=== PATIENT | female | born 1985 | race Caucasian/White ===

== ENCOUNTER 2017-03-18 13:50 | Emergency (ER) | payer BC ==
[2017-03-18] MEDS ORDERED: Sulfamethox/Trimethoprim DS 800/160* TAB PO ONE (15:39)
[2017-03-18] MEDS ORDERED: Cephalexin CAP* 500 MG PO ONE (15:39)
[2017-03-18] MEDS ORDERED: Ibuprofen TAB* 600 MG PO ONE (15:40)
--- NOTE | 2017-03-18 15:45 | UC ---
Complaint Female HPI - HPI Summary HPI Summary: 31 year old female with no significant pmhx here for vaginal pain. Pain started two days ago and today worsening. Reports symptoms worsening today , prompting her to come to the UC. No discharge, dysuria, fever or chills. - History Of Current Complaint Chief Complaint: UCGeneralIllness Stated Complaint: CYST/PERSONAL Time Seen by Provider: 03/18/17 14:45 Hx Obtained From: Patient Hx Last Menstrual Period: spotting x 1 week ?: No Onset/Duration: Gradual Onset Severity Initially: Mild Severity Currently: Moderate Character: Sharp Aggravating Factor(s): Movement Alleviating Factor(s): Other - rest Associated Signs And Symptoms: Positive: Negative - Allergies/Home Medications Allergies/Adverse Reactions: Allergies Allergy/AdvReac Type Severity Reaction Status Date / Time cantelope Allergy Intermediate Heartburn Uncoded 10/12/14 07:53 Home Medications: Home Medications Letrozole 2.5 mg PO 03/18/17 [History] PMH/Surg Hx/FS Hx/Imm Hx Psychological History: Depression - Surgical History Surgical History: None - Social History Alcohol Use: Rare Substance Use Type: None Smoking Status (MU): Never Smoked Tobacco - Immunization History Most Recent Influenza Vaccination: unk Most Recent Tetanus Shot: 07/07/14 Most Recent Pneumonia Vaccination: none Review of Systems Constitutional: Negative Skin: Negative Eyes: Negative ENT: Negative Respiratory: Negative Cardiovascular: Negative Gastrointestinal: Negative Genitourinary: Negative, Vaginal/Penile Pain Motor: Negative Neurovascular: Negative Musculoskeletal: Negative Neurological: Negative Psychological: Negative All Other Systems Reviewed And Are Negative: Yes Physical Exam Triage Information Reviewed: Yes Appearance: Well-Appearing, Well-Nourished Vital Signs: Initial Vital Signs Temp 36.6 C 03/18/17 13:59 Pulse 88 03/18/17 13:59 Resp 18 03/18/17 13:59 BP 135/72 03/18/17 13:59 Pulse Ox 100 03/18/17 13:59 Neck exam: Normal Neck: Positive: Supple Respiratory: Positive: Chest non-tender, Normal breath sounds, No respiratory distress Cardiovascular Exam: Normal Cardiovascular: Positive: RRR, No Murmur Abdomen Description: Positive: Nontender - Pelvic exam 1cm indurated, fluctuant lesion over left corner between labia manora and majora, No intravaginal lesions No surrounding erythema, Other: - left inguinal lad Neurological: Positive: Alert Complaint Female Dx - Course Course Of Treatment: Given the small size and area of the abscess, patient instructed to try abx for two days. If symptoms worsen, or develop fever to seek care in the ED. She tried to make appt with her radiochemical technician and she was not available to get appt until next week. - Differential Dx/Diagnosis Differential Diagnosis/HQI/PQRI: Other Provider Diagnoses: Absces of labia manora/majora Discharge - Discharge Plan Condition: Good Disposition: HOME Prescriptions: Cephalexin CAP* [Keflex CAP*] 500 mg PO QID 10 Days #40 cap Ibuprofen [Ibuprofen 200 MG] 200 mg PO Q4HR PRN #40 cap PRN Reason: Pain oxyCODONE/Acetamin 5/325 MG* [Percocet 5/325 TAB*] 1 tab PO Q6H PRN 5 Days #12 tab MDD 4 PRN Reason: Pain Sulfamethox/Trimethoprim DS* [Bactrim DS 800/160 TAB*] 1 tab PO BID 10 Days #20 tab Patient Education Materials: Abscess (ED) Referrals: Marla Torres MD [Primary Care Provider] - Additional Instructions: If you develop fever or swelling worsens in the next 24-48 hours, go the ED. If symptoms improve, you need to follow up with your radiochemical technician doctor in the next one week. Images Perineum Female: 1 - Indurated lesion with mild fluctuance 1cm
[2017-03-18 15:54] VITALS: BP 135/70
== END 2017-03-18 16:08 | disposition home or self-care (01) ==
LOC: UCEAST 13:50
DX: N76.4 Abscess of vulva (principal); Z32.02 Encounter for pregnancy test, result negative; F32.9 Major depressive disorder, single episode, unspecified
CPT/HCPCS: 84702; 99213; A9270-GY; G0463

== ENCOUNTER 2017-12-22 08:10 | Inpatient (IN) | payer BC ==
[2017-12-22] MEDS ORDERED: Misoprostol TAB* 100 MCG ONE (08:57)
--- NOTE | 2017-12-22 10:22 | HP ---
General Information - General Information Maternal Age: 32 Grav: 2 Para: 1 SAB: 0 IEA: 0 Estimated Due Date: 12/27/17 Determined By: LMP Maternal Blood Type and Rh: A Positive - Results this Serology/RPR Result: Non-Reactive Rubella Result: Immune HBsAg Result: Negative HIV Result: Negative GBS Culture Result: Negative Past Medical History Delivery History: Hx Uncomplicated Vaginal Delivery - SVB with 2nd degree lac 2014 Pertinent Past Medical History: See Records Past Medical History Comment: Anxiety-on Lexapro hypothyroidism in past Asthma-mild, inhaler PRN migraine Pertinent Past Surgical History: None Pertinent Family History: Non-Contributory Family History Comment: Pancreatic cancer dementia - Antepartal Records Antepartal Records: Reviewed, Complicated by: - High BMI, anxiety Review of Systems Constitutional: Comfortable CV Complaint: No Respiratory: Shortness of Breath: No Gastrointestinal: Nausea, Soft Stool Genitourinary: No Dysuria, No Bleeding, No Leaking Fluid Musculoskeletal: No Complaint Neurological: No Visual Changes, Headache - This am, poor sleep, has not tried Tylenol Movement: Normal Exam Allergies/Adverse Reactions: Allergies melon Adverse Reaction (Verified 12/22/17 09:05) Heartburn cantelope Adverse Reaction (Intermediate, Uncoded 12/22/17 09:05) Heartburn BP 128/71 T 97.4 HR 88 RR 18 O2 100 - Measurements Height: 5 ft 9.5 in Weight: 292 lb Weight in lbs: [phone] Body Mass Index (BMI): 42.5 Pre- Weight: 277 lb 0.003 oz Weight Gained This : 14.999 lbs and 0.013 ozs - Exam Breast: Breast Exam Deferred CVA: No CVA Tenderness Extremities: Edema - mild bilat pedal Heart: Normal Rhythm/Heart Sounds HEENT: No Significant Findings Lungs: Clear Bilaterally Rectal: Rectal Exam Deferred Reflexes: DTR 2+, - - no clonus Thyroid: - - WNL @ entry to care - Abdominal Exam Abdomen Exam: Non-Tender, Fundal Height Consistent with Dates - Ultrasound/Biophysical Profile Ultrasound Status: Not Done Targeted Exam Findings See L&D Outpatient Visit Provider Note for Findings: Yes Estimated Weight: 7-7.5 lb Cervical Exam: 1cm Effacement: 70% Station: -2 Presenting Part: Vertex Membrane Status: Intact Bleeding/Discharge: None EFM Findings - External Monitor Findings Baseline Heart Rate: 135 External Monitor Findings: Accelerations Present, No Pattern of Variable or Late Decelerations, Variability Moderate Contractions: None Assessment/Plan - Assessment 32 yo with IUP @ 39+2 weeks gestation for elective induction of labor. IBOW. No evidence metabolic acidemia - Obstetrical Risk Factors Obstetrical Risk Factors: Obesity - Plan Plan: Induction, Cervical Ripening Plan Comment: Admit to L&D. PARQ discussion of options for cervical ripening and patient opting for misoprostal sublingual. Planning epidural when uncomfortable. Will consider further doses of miso PRN or trial of pitocin. Anticipate SVB. - Date/Time of Admission Date of Admission: 12/22/17 Time of Admission: 09:03
[2017-12-22] MEDS ORDERED: Oxytocin in LR* 20 UNITS/1,000 ML BAG IVPB SCH (13:00)
--- NOTE | 2017-12-22 13:09 | PN ---
Progress Note - Progress Note Date of Service: 12/22/17 Note: S: Feeling ok, had "several" painful contractions but no pattern. Back is starting to ache, helped a little by heat. No discharge/bleeding O: BP 157/75 repeat 141/76, will change cuff and repeat T: 97.5 VE deferred UCs irregular FHT 125, no decels, +accels, mod katarzyna A: IUP @ 39+2 weeks gestation for induction of labor No evidence metabolic acidemia P: PARQ discussion repeat miso vs pitocin. Patient prefers low-dose pitocin because it worked well with previous induction. Bishops score 7 so reasonable to trial. Desires epidural when uncomfortable. Encouraged position changes. Will start LD pitocin.
[2017-12-22 13:50] LABS: ABS Basophils 0 10^3/ul (0-0.2); ABS Eosinophils 1.2 10^3/ul (0-0.6); ABS Lymphocytes 1.8 10^3/ul (1.0-4.8); ABS Monocytes 0.6 10^3/ul (0-0.8); ABS Neutrophils 8.7 10^3/ul (1.5-7.7); ABS Nucleated RBC 0 10^3/ul; Eosinophil % 9.6 % (0-6); Hematocrit 35 % (35-47); Hemoglobin 11.4 g/dl (12.0-16.0); Lymphocyte % 14.7 % (25-47); Mean Corpuscular HGB Conc 33 g/dl (31-36); Mean Corpuscular Hemoglobin 25 pg (27-31); Mean Corpuscular Volume 77 fL (80-97); Mean Platelet Volume 7.7 um3 (7.4-10.4); Nucleated Red Blood Cells % 0; Platelet Count 214 10^3/ul (150-450); Red Blood Count 4.55 10^6/ul (4.00-5.40); Red Cell Distribution Width 15 % (10.5-15); White Blood Count 12.4 10^3/ul (3.5-10.8)
--- NOTE | 2017-12-22 15:33 | PN ---
Progress Note - Progress Note Date of Service: 12/22/17 Note: S: A little nauseated, eating a small amount to see if that helps. Starting to feel contractions more strongly, planning to get in tub. O: VSS, afebrile Pit @ 6 UCs q 2-4 min FHT 135 Cat 1 A: IUP @ 39+5 weeks gestation, induction of labor No evidence metabolic acidemia Coping well with early labor P: Continue to monitor, increase pitocin as indicated. Epidural when desired. Anticipate SVB
--- NOTE | 2017-12-22 18:07 | PN ---
Progress Note - Progress Note Date of Service: 12/22/17 Note: S: Patient reports feeling contractions a little stronger. She had a low right- sided "sharp" pain with position change, not continuous. Sternal pain with contractions, also described as sharp. Tried tub for a while, now in bed. O: Pit @ 12 UCs q 2-5 FHT 125, Cat 1 VE 1-2cm/80/-2 A: IUP @ 39+2 weeks gestation no evidence metabolic acidemia Coping well P: Discussion of pain management options. Encouraged position changes. Suggested isaac balloon, patient to consider. Would like to eat dinner, walk around and reconsider. Continue pit and monitoring per protocol.
--- NOTE | 2017-12-22 21:16 | PN ---
Progress Note - Progress Note Date of Service: 12/22/17 Note: S: Feeling ok, contractions still fairly mild. O: UCs Q 3-4 min Pit @ 16 VSS, afebrile FHT 130, Cat 1 A: IUP @ 39+2 weeks gestation, IOL early labor P: Patient would like to ambulate unit for a while and then will likely consent to trying isaac bulb placement.
[2017-12-22] MEDS ORDERED: Nalbuphine* 10 MG/ML 1 ML VIAL IV PRN (23:22)
[2017-12-22] MEDS ORDERED: Promethazine INJ(RESTRICTED)* 25 MG/ML 1 ML VIAL IV PRN (23:22)
--- NOTE | 2017-12-22 23:33 | PN ---
Progress Note - Progress Note Date of Service: 12/22/17 Note: S: Feeling lots more vaginal pressure, worse with contractions but feels it constantly. Would like something for pain but feels it's "too early" for epidural O: Hampton place 2150 VSS, afebrile FHT 130, Cat 1 Pit @ 16 A: IUP @ 39+2 weeks gestation for IOL P: PARQ discussion nubain/phenergan, patient in agreement.
--- NOTE | 2017-12-23 04:56 | PN ---
Progress Note - Progress Note Date of Service: 12/23/17 Note: S: Contractions more painful, desires pain med O: Pit @ 18 UCs q 2-4 min FHT 130 VE: isaac bulb @ introitus, removed. VSS, afebrile A: Active labor No evidence metabolic acidemia P: Patient desires epidural, anesthesia paged. Pit turned off for patient comfort.
[2017-12-23] MEDS ORDERED: OBEPIDURAL* 250 ML EPIDURAL ONE (05:08)
[2017-12-23] MEDS ORDERED: Famotidine TAB* 20 MG PO PRN (05:44)
[2017-12-23] MEDS ORDERED: Phenylephrine IV* 40 MCG/ML 10 ML SYRINGE IV PUSH PRN ×2 (05:44)
[2017-12-23] MEDS ORDERED: Sodium Citrate/Citric Acid* 15 ML UDC PO PRN (05:44)
[2017-12-23] MEDS ORDERED: EPHEDrine (Pressors)* 50 MG/ML VIAL IV PUSH PRN ×2 (05:44)
[2017-12-23] MEDS ORDERED: Ondansetron INJ* 2 MG/ML VIAL IV ONE (05:46)
[2017-12-23] MEDS: OBEPIDURAL* 250 ML EPIDURAL SCH (07:21)
--- NOTE | 2017-12-23 08:17 | PN ---
Progress Note - Progress Note Date of Service: 12/23/17 Note: S: Assuming care of Suly schreiber 32 yo here for elective term IOL. Pt resting comfortably s/p CEI placement. O: BP 118/69 T 98.6 FHT: 125bpm. Moderate variability. +Accels. No decels UCs: Not tracing, pitocin restarted just now at 6mu/min. Will increase per low dose protocol VE: 4-5cm/80%/vtx -1. AROM meconium stained fluid A: IUP at 39-3/7 in early active labor No evidence of metabolic acidemia P: AROM, re-start IV pitocin. Enc rest.
[2017-12-23] MEDS ORDERED: Glycerin ADULT SUPP PR PRN (12:49)
--- NOTE | 2017-12-23 12:54 | PROCNOTE ---
[facility] OB: Delivery Note - Delivery A Date of : 12/23/17 Time of : 11:48 [place] Sex: Female Score 1 Minute: 8 Score 5 Minutes: 9 Gestational Age in Weeks and Days at Delivery: 39 Weeks and 3 Days Delivery Method: Spontaneous Vaginal Labor: Induced Did Patient attempt ?: N/A, No Previous Amniotic Fluid: Meconium Estimated Blood Loss: 300 Anesthesia/Analgesia: CEI for Labor Delivered By: Kyree Augustine - Nursery Level of Nursery: Regular/Bedside - Perineum Perineal Injury: 2nd Degree Perineal Injury Comment: Repaired with 3-0 Rapide under local infiltration 1% lidocaine and CEI Perineal Repair: By Delivering Practioner - Events Delivery Events of Note: Pitocin During Labor - Additional Delivery Notes Additional Delivery Notes: Pt admitted for term IOL. Oral misoprostol x 1 and Hampton bulb + pitocin led to onset early active labor. Pt recieved epidural with good relief. Amniotomy to meconium stained fluid and IV pitocin led to active labor with expected progression to complete. Pushed x 5 minutes. liveborn female. Slow, controlled delivery of head. OA to PAOLA. Shoulders followed easily. vigorous with spontaneous cry. HR>110bpm. Delivered to maternal abdomen. Cord clamped x 2 and but by FOB when pulsations ceased. Spontaneous delivery intact placenta. Membranes complete. Fundus firm to massage with IV pitocin infusing. Minimal bleeding noted. Repair as above. EBL 300mL. At time of note mother and in stable condition. Breast feeding initiated
[2017-12-23] MEDS ORDERED: Oxytocin in LR* 20 UNITS/1,000 ML BAG IVPB SCH (13:00)
[2017-12-23] MEDS: Witch Hazel PAD* JAR TOPICAL PRN (15:07)
[2017-12-23] MEDS: Dibucaine 1% 28.35 GM TUBE PR PRN (15:07)
[2017-12-23] MEDS: Docusate CAP* 100 MG PO SCH ×2 (15:07→21:14)
[2017-12-23] MEDS: Citalopram TAB* 40 MG PO SCH (15:19)
[2017-12-23] MEDS: Ibuprofen TAB* 600 MG PO PRN ×2 (16:15→22:21)
[2017-12-23] MEDS: Simethicone TAB* 80 MG TAB.CHEW PO SCH (18:17)
[2017-12-24] MEDS: OBEPIDURAL* 250 ML EPIDURAL SCH (08:03)
[2017-12-24] MEDS: Simethicone TAB* 80 MG TAB.CHEW PO SCH (08:03)
[2017-12-24 08:19] LABS: ABS Basophils 0 10^3/ul (0-0.2); ABS Lymphocytes 2.8 10^3/ul (1.0-4.8); ABS Neutrophils 8.4 10^3/ul (1.5-7.7); ABS Nucleated RBC 0 10^3/ul; Eosinophil % 7.8 % (0-6); Hematocrit 25 % (35-47); Hemoglobin 8.2 g/dl (12.0-16.0); Lymphocyte % 21.1 % (25-47); Mean Corpuscular HGB Conc 33 g/dl (31-36); Mean Corpuscular Hemoglobin 25 pg (27-31); Mean Corpuscular Volume 77 fL (80-97); Mean Platelet Volume 7.8 um3 (7.4-10.4); Nucleated Red Blood Cells % 0; Platelet Count 174 10^3/ul (150-450); Red Blood Count 3.26 10^6/ul (4.00-5.40); Red Cell Distribution Width 16 % (10.5-15); White Blood Count 13.3 10^3/ul (3.5-10.8)
[2017-12-24] MEDS: Ferrous Gluconate TAB* 324 MG TAB PO SCH ×2 (08:31→20:29)
[2017-12-24] MEDS: Ibuprofen TAB* 600 MG PO PRN ×2 (08:31→16:45)
[2017-12-24] MEDS: Docusate CAP* 100 MG PO SCH ×3 (08:31→20:29)
[2017-12-24] MEDS: Citalopram TAB* 40 MG PO SCH (08:31)
[2017-12-24] MEDS: Acetaminophen TAB* 325 MG PO PRN ×2 (12:06→20:29)
[2017-12-25] MEDS: Docusate CAP* 100 MG PO SCH (08:18)
[2017-12-25] MEDS: Citalopram TAB* 40 MG PO SCH (08:19)
[2017-12-25] MEDS: Ferrous Gluconate TAB* 324 MG TAB PO SCH (08:19)
[2017-12-25] MEDS: Acetaminophen TAB* 325 MG PO PRN (08:19)
[2017-12-25] MEDS: Ibuprofen TAB* 600 MG PO PRN (08:19)
[2017-12-25 08:55] LABS: Hematocrit 30 % (35-47); Hemoglobin 9.7 g/dl (12.0-16.0)
[2017-12-25 09:41] VITALS: BP 115/54
[2017-12-25] MEDS: Dibucaine 1% 28.35 GM TUBE PR PRN (10:02)
[2017-12-25] MEDS: Witch Hazel PAD* JAR TOPICAL PRN (10:02)
== END 2017-12-25 10:55 | disposition home or self-care (01) | DRG 560 ==
LOC: MCHOBOUT 08:10 → MCHOB 09:03
PROVIDERS: ADMIT Midwife; ATTEND Midwife
PROC: 10907ZC Drainage of Amniotic Fluid, Therapeutic from Products of Conception, Via Natural or Artificial Opening (ICD-10-PCS; principal; 2017-12-23)
PROC: 3E0P7VZ Introduction of Hormone into Female Reproductive, Via Natural or Artificial Opening (ICD-10-PCS; 2017-12-23)
PROC: 3E033VJ Introduction of Other Hormone into Peripheral Vein, Percutaneous Approach (ICD-10-PCS; 2017-12-23)
PROC: 10E0XZZ Delivery of Products of Conception, External Approach (ICD-10-PCS; 2017-12-23)
PROC: 4A1HXCZ Monitoring of Products of Conception, Cardiac Rate, External Approach (ICD-10-PCS; 2017-12-23)
PROC: 0KQM0ZZ Repair Perineum Muscle, Open Approach (ICD-10-PCS; 2017-12-23)
PROC: 0U7C7ZZ Dilation of Cervix, Via Natural or Artificial Opening (ICD-10-PCS; 2017-12-23)
DX: O99.344 Other mental disorders complicating childbirth (principal); Z68.41 Body mass index [BMI] 40.0-44.9, adult; F41.9 Anxiety disorder, unspecified; Z91.018 Allergy to other foods; Z80.0 Family history of malignant neoplasm of digestive organs; Z82.0 Family history of epilepsy and other diseases of the nervous system; O99.214 Obesity complicating childbirth; Z3A.39 39 weeks gestation of pregnancy; Z37.0 Single live birth; O77.0 Labor and delivery complicated by meconium in amniotic fluid; O70.1 Second degree perineal laceration during delivery; O90.81 Anemia of the puerperium
CPT/HCPCS: 36415; 85014; 85018; 85025; 86850; 86900; 86901; A9270-GY; J2300; J2550; S0191

== ENCOUNTER 2020-06-25 12:16 | Inpatient (IN) ==
[2020-06-25] MEDS ORDERED: Buffered Lidocaine 1% SYRIN 1 ml INTRADERM ONE (13:25)
[2020-06-25] MEDS ORDERED: Lactated Ringers 1000 ml BAG 1,000 ML IV ONE (13:25)
[2020-06-25] MEDS ORDERED: Oxytocin in LR 20 UNITS/1,000 ML BAG IVPB SCH (14:00)
[2020-06-25] MEDS ORDERED: Lactated Ringers 1000 ml BAG 1,000 ML IV SCH (14:00)
[2020-06-25 14:07] LABS: ABS Eosinophils 0.2 10^3/ul (0-0.6); ABS Lymphocytes 2.1 10^3/ul (1.0-4.8); ABS Monocytes 0.7 10^3/ul (0-0.8); ABS Neutrophils 8.7 10^3/ul (1.5-7.7); Eosinophil % 1.6 %; Hematocrit 33 % (35-47); Hemoglobin 10.7 g/dL (12.0-16.0); Lymphocyte % 18.2 %; Mean Corpuscular HGB Conc 33 g/dL (31-36); Mean Corpuscular Hemoglobin 25 pg (27-31); Mean Corpuscular Volume 75 fL (80-97); Mean Platelet Volume 7.2 fL (7.4-10.4); Nucleated Red Blood Cells % 0.1; Platelet Count 274 10^3/uL (150-450); Red Blood Count 4.37 10^6 /uL (3.70-4.87); Red Cell Distribution Width 15 % (10-15); White Blood Count 11.7 10^3/uL (3.5-10.8)
[2020-06-25 14:25] LABS: Urine Benzodiazepine Screen None Detected (None Detect); Urine Cannabinoids Screen None Detected (None Detect); Urine Opiates Screen None Detected (None Detect)
[2020-06-25] MEDS ORDERED: Promethazine INJ(RESTRICTED) 25 MG/ML 1 ml VIAL IV ONE (21:46)
[2020-06-25] MEDS ORDERED: Morphine 10 MG/ML VIAL (1 ml) IV ONE (21:47)
[2020-06-26] MEDS ORDERED: Oxytocin in LR 20 UNITS/1,000 ML BAG IVPB SCH ×2 (08:00→20:00)
[2020-06-26] MEDS ORDERED: OBEPIDURAL 250 ML EPIDURAL ONE (14:11)
[2020-06-26] MEDS ORDERED: Phenylephrine 40 mcg/mL 10mL (400mcg) SYRINGE IV PUSH PRN ×2 (14:47)
[2020-06-26] MEDS ORDERED: Lactated Ringers 1000 ml BAG 1,000 ML IV ONE (14:47)
[2020-06-26] MEDS ORDERED: Sodium Citrate/Citric Acid LIQ 15 ML UDC PO PRN (14:47)
[2020-06-26] MEDS ORDERED: Lactated Ringers 1000 ml BAG 1,000 ML IV SCH ×2 (15:00→20:00)
[2020-06-26] MEDS ORDERED: OBEPIDURAL 250 ML EPIDURAL SCH (15:00)
[2020-06-26] MEDS ORDERED: Glycerin ADULT 2.4 gm SUPP PR PRN (19:26)
[2020-06-26] MEDS ORDERED: Witch Hazel PAD JAR TOPICAL PRN (19:26)
[2020-06-26] MEDS: Dibucaine 1% OINT 28.35 GM TUBE PR PRN (20:14)
[2020-06-26] MEDS ORDERED: Lidocaine 1% VIAL 10 MG/ML VIAL ONE (20:19)
[2020-06-27 06:11] LABS: ABS Eosinophils 0.1 10^3/ul (0-0.6); ABS Lymphocytes 2.6 10^3/ul (1.0-4.8); ABS Monocytes 1.2 10^3/ul (0-0.8); Eosinophil % 0.9 %; Hematocrit 30 % (35-47); Hemoglobin 9.8 g/dL (12.0-16.0); Lymphocyte % 17.4 %; Mean Corpuscular HGB Conc 33 g/dL (31-36); Mean Corpuscular Hemoglobin 25 pg (27-31); Mean Corpuscular Volume 75 fL (80-97); Platelet Count 238 10^3/uL (150-450); Red Blood Count 3.98 10^6 /uL (3.70-4.87); Red Cell Distribution Width 15 % (10-15); White Blood Count 14.9 10^3/uL (3.5-10.8)
[2020-06-28 08:28] VITALS: BP 129/60
[2020-06-28] MEDS: Dibucaine 1% OINT 28.35 GM TUBE PR PRN (09:42)
== END 2020-06-28 10:40 | disposition home or self-care (01) | DRG 560 ==
LOC: MCHOBOUT 12:16 → MCHOB 13:46
PROVIDERS: ADMIT Midwife; ATTEND Midwife